=== PATIENT | female | born 1985 | race Native Hawaiian/Other Pacific Islander ===

== ENCOUNTER 2017-03-13 21:22 | Emergency (ER) | payer OTHER ==
--- NOTE | 2017-03-13 21:30 | ED Physician Documentation ---
PD HPI BACK PAIN - Stated complaint Stated Complaint: BACK PX - Chief complaint Chief Complaint: Back Pain - History obtained from History obtained from: Patient - History of Present Illness Timing - onset: Enter time (14:00) Timing - duration: Hours Timing - details: Abrupt onset Pain level now: 6 Location: Upper, Left Quality: Pain, Spasm Associated symptoms: No: Weakness, Numbness Improves with: Rest, Position Worsened by: Movement, Twisting Contributing factors: Twisting Similar symptoms before: Has not had sx before Recently seen: Not recently seen - Additional information Additional information: sudden onset this afternoon at approximately 2 PM of left upper back pain when she was taking off her jacket. The pain has steadily worsened and has become intolerable for the last hour. She has no h/o similar pain Review of Systems Cardiac: reports: Reviewed and negative Respiratory: reports: Reviewed and negative GI: denies: Abdominal Pain Musculoskeletal: reports: Back pain. denies: Neck pain Neurologic: denies: Focal weakness, Numbness PD PAST MEDICAL HISTORY - Past Medical History Past Medical History: No - Past Surgical History Past Surgical History: No - Present Medications Home Medications: Ambulatory Orders Medication Instructions Recorded Confirmed Cyclobenzaprine [Flexeril] 10 mg PO TID PRN #20 tablet 03/13/17 Hydrocodone/Acetaminophen 1 - 2 each PO Q6HR PRN #14 tablet 03/13/17 [Hydrocodone-Acetamin 5-325 mg] - Allergies Allergies/Adverse Reactions: Allergies Allergy/AdvReac Type Severity Reaction Status Date / Time No Known Drug Allergies Allergy Verified 03/13/17 21:27 - Living Situation Living Situation: reports: With spouse/s.o., With family Living Arrangement: reports: At home - Social History Does the pt smoke?: No PD ED PE NORMAL - Vitals Vital signs reviewed: Yes - General General: Alert and oriented X 3, No acute distress (NAD at rest but appears uncomfortable with movement involving upper back), Well developed/nourished - Neck Neck: Supple, no meningeal sign, No bony TTP - Respiratory Respiratory: No respiratory distress, Clear bilaterally - Back Back: No spinal TTP Results - Vitals Vitals: Vital Signs - 24 hr 03/13/17 03/13/17 21:25 22:17 Temperature 36.6 C 36.6 C Heart Rate 88 86 Respiratory 18 18 Rate Blood Pressure 120/85 H 121/83 H O2 Saturation 99 97 Oxygen O2 Source Room air PD MEDICAL DECISION MAKING - ED course Complexity details: considered differential, d/w patient Departure - Departure Disposition: 01 Home, Self Care Clinical Impression: Back pain Qualifiers: Back pain location: thoracic back pain Chronicity: acute Back pain laterality: left Qualified Code(s): M54.6 - Pain in thoracic spine Condition: Good Instructions: NARCOTIC, Oral, ED Neck Back Pain General Follow-Up: CAITLYN Payne [Provider Group] Prescriptions: Hydrocodone/Acetaminophen [Hydrocodone-Acetamin 5-325 mg] 1 - 2 each PO Q6HR PRN #14 tablet PRN Reason: Pain Cyclobenzaprine [Flexeril] 10 mg PO TID PRN #20 tablet PRN Reason: Spasms Discharge Date/Time: 03/13/17 22:26
[2017-03-13] MEDS ORDERED: HYDROcod/ACET 5/325 Prepack 6 PO STA (21:54)
[2017-03-13] MEDS ORDERED: CYCLOBENZAPRINE 10 MG Prepack 2 PO STA (21:54)
[2017-03-13 22:18] VITALS: BP 121/83
[2017-03-13] MEDS ORDERED: HYDROcod/ACET 5/325 Prepack 6 PO ONE (22:21)
[2017-03-13] MEDS ORDERED: CYCLOBENZAPRINE 10 MG Prepack 2 PO ONE (22:21)
== END 2017-03-13 22:26 | disposition home or self-care (01) ==
LOC: ED 21:22
DX: M54.6 Pain in thoracic spine (principal)
CPT/HCPCS: 99283

== ENCOUNTER 2020-02-15 12:45 | Emergency (ER) | payer OTHER ==
[2020-02-15 13:09] VITALS: BP 122/67
== END 2020-02-15 13:18 | disposition left against medical advice (07) ==
LOC: ED 12:45
DX: Z53.21 Procedure and treatment not carried out due to patient leaving prior to being seen by health care provider (principal)

== ENCOUNTER 2020-02-15 13:13 | Outpatient (CLI) | payer OTHER ==
[2020-02-15 13:31] VITALS: BP 116/66
--- NOTE | 2020-02-16 14:56 | PROCEDURE REPORT ---
- HPI Diagnosis/Indication for NST: Other (nose bleeds) Current EDU 04/29/20 Gestation 29 Weeks and 3 Days 6 Para 2 Vital Signs Temperature 36.8 C 02/15/20 13:29 Heart Rate 87 02/15/20 13:29 Respiratory Rate 16 02/15/20 13:29 Blood Pressure 116/66 02/15/20 13:29 O2 Saturation 99 02/15/20 13:29 Temperature 36.8 C 02/15/20 13:29 Heart Rate 87 02/15/20 13:29 Respiratory Rate 16 02/15/20 13:29 Blood Pressure 116/66 02/15/20 13:29 O2 Saturation 99 02/15/20 13:29 - NST Procedure NST Procedure Start Date 02/15/20 Start Time 13:26 Stop Time 14:02 Vibroacoustic Stimulation Used No Patient States Movement Yes - Results and Plan Findings/Impression: reactive NST Plan: releast to the ED
== END 2020-02-15 14:05 | disposition home or self-care (01) ==
LOC: WFO 13:13 → FBP 13:15 → WFO 14:05
PROVIDERS: ATTEND Obstetrics & Gynecology
DX: O99.891 Other specified diseases and conditions complicating pregnancy (principal); R04.0 Epistaxis; Z3A.29 29 weeks gestation of pregnancy
CPT/HCPCS: 59025

== ENCOUNTER 2020-02-15 14:09 | Emergency (ER) | payer OTHER ==
--- NOTE | 2020-02-15 15:14 | ED Physician Documentation ---
History of Present Illness - Stated complaint Stated Complaint: NOSE BLOOD CLOTS - Chief complaint Chief Complaint: Heent - History obtained from History obtained from: Patient - History of Present Illness Timing: Prior to arrival, How many days ago (4) - Additonal information Additional information: 34-year-old female who is approximately 29 weeks presents the emergency department for evaluation of left-sided nosebleeds. She reports that in the a.m.'s for the last 3 to 4 days she has woken up and had some nosebleeding that she is typically able to get to stop with a little bit of pressure. This a.m. it took nearly an hour for the bleeding to stop. Patient denies any headaches or fever. She denies gumline swelling or bruising when she brushes her teeth. She has no bruising on her body or any petechiae. She denies any recent falls or facial trauma. She is 29 weeks . She has movement. Denies lower abdominal pain loss of fluids or any vaginal bleeding. Prior to being seen in the emergency department she did go to OB and did have an NST completed which was normal for gestation. Review of Systems Constitutional: reports: Reviewed and negative Eyes: reports: Reviewed and negative Ears: reports: Reviewed and negative Nose: reports: Epistaxis (left nares) Throat: reports: Reviewed and negative Cardiac: reports: Reviewed and negative Respiratory: reports: Reviewed and negative GI: reports: Reviewed and negative : reports: Now EGA (29 weeks) Skin: reports: Reviewed and negative Musculoskeletal: reports: Reviewed and negative PD PAST MEDICAL HISTORY - Past Medical History Past Medical History: No - Past Surgical History Past Surgical History: No - Present Medications Home Medications: Ambulatory Orders Medication Instructions Recorded Confirmed Cyclobenzaprine [Flexeril] 10 mg PO TID PRN #20 tablet 03/13/17 Hydrocodone/Acetaminophen 1 - 2 each PO Q6HR PRN #14 tablet 03/13/17 [Hydrocodone-Acetamin 5-325 mg] - Allergies Allergies/Adverse Reactions: Allergies Allergy/AdvReac Type Severity Reaction Status Date / Time No Known Drug Allergies Allergy Verified 02/15/20 14:19 - Social History Does the pt smoke?: No Smoking Status: Never smoker Does the pt drink ETOH?: Yes Does the pt have substance abuse?: No - Immunizations Immunizations are current?: Yes PD ED PE EXPANDED - General General: Alert, No acute distress, Well developed/nourished - HEENT HEENT: Atraumatic, PERRL, Moist mucous membranes, Pharynx normal. No: Nasal congestion (Small nonbleeding friable vessels seen in the anterior superior nasal cavity. No hematoma or clots seen. No septal deviation.) - Cardiac Cardiac: Regular Rate, Regular Rhythm, Radial strong equal, Cap refill < 2 sec - Respiratory Respiratory: Clear to ausultation nilsa. No: Distress, Labored - Abdomen Abdomen: Normal Bowel sounds. No: Tender to palpation (Gravid uterus above the level of the umbilicus. Patient reports feeling movement. Denies abdominal pain loss of vaginal fluids or bleeding) - Derm Derm: Normal color. No: Rash, Petecchiae, Purpura - Neuro Neuro: Alert and Oriented X 3, CNII-XII intact - GCS Eye Opening: Spontaneous Motor: Obeys Commands Verbal: Oriented Total: 15 Results - Vitals Vitals: Vital Signs - 24 hr 02/15/20 14:16 Temperature 36.3 C L Heart Rate 86 Respiratory 16 Rate Blood Pressure 112/64 O2 Saturation 96 Oxygen O2 Source Room air PD MEDICAL DECISION MAKING - ED course Complexity details: reviewed results, re-evaluated patient, considered differential, d/w patient ED course: 34-year-old female who is 29 weeks presents the ED for evaluation of epistaxis. Prior to coming to the ER she did have an NST completed in the OB department which was normal for gestation. On exam at this time she has no active bleeding. I do see some friable vessels in the anterior superior nasal cavity that are not currently bleeding I believe this is the source of her concerns. Reassuringly she has no signs of systemic coagulopathy. No gumline swelling or bruising. No petechiae. I did advise the patient that she should use antibiotic ointment in both of her nares before going to sleep at night. If nosebleeds do recur turn she should hold firm pressure for 30 minutes. If still unable to stop bleeding at that point return to the emergency department Departure - Departure Disposition: 01 Home, Self Care Clinical Impression: Epistaxis Condition: Stable Record reviewed to determine appropriate education?: Yes Instructions: ED Nosebleed Comments: I hope that your bleeding stopped soon. When I look inside your nose I do see some very small friable vessels that I think are the cause of your nose bleeding but they are not currently bleeding. I do recommend that you use any antibiotic ointment such as bacitracin or Neosporin on the inside of your nares each night before going to bed. If your nosebleed returns hold firm pressure for 30 minutes if you continue to bleed despite that then please return to the emergen cy department. If you developed areas of unexplained bruising or bleeding in your mouth or on your body I would like you to return sooner to the ER for a second look
[2020-02-15 15:21] VITALS: BP 116/65
== END 2020-02-15 15:34 | disposition home or self-care (01) ==
LOC: ED 14:09
DX: O99.891 Other specified diseases and conditions complicating pregnancy (principal); R04.0 Epistaxis; Z3A.29 29 weeks gestation of pregnancy
CPT/HCPCS: 59025; 99281; 99282